=== PATIENT | male | born 1955 | race Caucasian/White ===

== ENCOUNTER 2018-12-06 19:32 | Inpatient (IN) | payer SELFPAY ==
[~2018-12-06] VITALS: Ht 188 cm; Wt 94.0 kg
[2018-12-06 19:36] VITALS: Ht 188 cm; Wt 94.0 kg
--- NOTE | 2018-12-06 19:40 | NUR ---
MD JAY AT BEDSIDE FOR MSE
--- NOTE | 2018-12-06 19:51 | NUR ---
LAB AND JESSICA VENTURA AT BEDSIDE FOR BLOOD DRAW AND EKG
--- NOTE | 2018-12-06 19:52 | NUR ---
PT BIB AMBULANCE FOR C/O GENERALIZED WEAKNESS. PT STATES HE WAS TRYING TO WALK TO THE STORE WHEN HE FELT LIKE HE JUST COULDNT ANYMORE. PT STATES THAT HE HAS BEEN "VIOLENTLY ILL ALL MORNING" PT STATES HE HAS BEEN THROWING UP WHATEVER WAS IN HIS SYSTEM. 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 PT DENIES ANY PAIN AT THIS TIME. PT IS ONLY ALERT TO NAME AND PRESIDENT. PT STATES HE DOES NOT KNOW THE DATE OR WHERE HE IS. BYSTANDER CALLED 911 FOR PT. PT IS SPEAKING IN CLEAR AND FULL SENTENCES. PT HAS UNSTEADY GAIT UPON AMBULATION FROM GURNEY TO BED. PT RESPIRATIONS ARE EQUAL AND UNLABORED. PT DENIES ANY MEDICAL PROBLEMS OR OTHER COMPLAINTS AT THIS TIME. PT REPORTS BEING HOMELESS. PT ALSO APPEARS INCONTINENT. NAD AT THIS TIME.
[2018-12-06 20:05] LABS: BASOPHIL % 0.7 % (0-2); PLATELET COUNT 141 x10^3mcL (130-400); RED CELL DISTRIBUTION WIDTH 14.5 % (11.5-14.5)
[2018-12-06 20:11] LABS: CALCIUM 9.5 mg/dL (8.5-10.1); CARBON DIOXIDE 20.4 mmol/L (21-32); CHLORIDE SERUM 88 mmol/L (98-107); CREATININE SERUM 1.7 mg/dL (0.7-1.3); GFR1 44 mL/min; GLUCOSE SERUM 156 mg/dL (74-106); POTASSIUM SERUM 3.8 mmol/L (3.5-5.1); SODIUM SERUM 130 mmol/L (136-145)
[2018-12-06 20:15] LABS: ALBUMIN 4.2 g/dL (3.4-5.0); ALKALINE PHOSPHATASE 84 U/L (46-116); ALT/SGPT 116 U/L (16-63); AST/SGOT 83 U/L (15-37); BILIRUBIN TOTAL 1.3 mg/dL (0.20-1.00); LIPASE 933 IU/L (73-393); MAGNESIUM 2.3 mg/dL (1.8-2.4); TOTAL PROTEIN, SERUM 8.2 g/dL (6.4-8.2)
--- NOTE | 2018-12-06 20:25 | NUR ---
CALLED PHARMACY FOR MULTIVITAMIN BAG. THEY STATE THEY WILL SEND IT OVER SOON IT IS READY
--- NOTE | 2018-12-06 20:50 | NUR ---
MD JAY MADE AWARE OF PT LACTIC ACID. NO NEW ORDERS AT THIS TIME.
--- NOTE | 2018-12-06 21:41 | NUR ---
ULTRASOUND AT BEDSIDE
--- NOTE | 2018-12-06 22:18 | NUR ---
PT WAS PROVIDED KENNY TO SEE IF HE CAN KEEP THAT DOWN
--- NOTE | 2018-12-06 22:39 | NUR ---
X RAY AT BEDSIDE
--- NOTE | 2018-12-06 22:51 | NUR ---
REPORT GIVENT YAN PIEDRA RN
[2018-12-06 23:27] VITALS: BP 141/90
[2018-12-06 23:31] LABS: PHOSPHOROUS 4.1 mg/dL (2.5-4.9)
[2018-12-06 23:38] LABS: FREE T4 1.09 ng/dL (0.76-1.46); FREE THYROXINE INDEX 3.3 ug/dL (1.4-4.5); T4(THYROXINE) 8.7 ug/dL (4.7-13.3)
--- NOTE | 2018-12-06 23:38 | NUR ---
RECEIVED PT FROM ER. PT ADMIT FOR PANCREATITIS, PT IS A/O X4, VERBAL RESPONSIVE, ABLE TO TELL WHAT HE NEEDS. LUNG SOUND CLEAR BILATERAL, NO COUGH, NO SOB, PT IS ON 2L/MIN O2 VIA NC. PO2 97%, PT IS ON TELE 26, ST, DENY ANY CHEST PAIN OR DISCOMFORT, BOWEL SOUND PRESENT ALL 4 QUADRANTS, NO DISTENTION, NO TENDER. PEDAL PULSE PRESENT BOTH FEET, NO EDEMA, IV AT LEFT AC, NO LEAKING, NO INFILTRATION. ALL ADLS ASSIST, ALL NEED MET, CALL LIGHT IN REACH, WILL CONTINUE TO MONITOR.
--- NOTE | 2018-12-07 | NUR ---
RECIEVED PT FROM RESOURCE NOTED. PT IS A/O X4. PT A LITTLE SLOW TO COMMAND. ON TELE 26, ST. HR 115-130. DENIES ANY CHEST PAIN OR PRESSURE. PT WAS GIVEN ATIVAN IV PER EMAR. PT STATED HE FELT A BIT RESTLESS. BANANNA BAG RUNNING FROM ED. IV INTACT AND PATENT. SKIN WARM AND INTACT. SZ PRECAUTION PLACED. BED AT LOWEST SETTING. CALL LIGHT WITHIN REACH. WILL CONTINUE TO MONTIOR.
[2018-12-07 00:25] LABS: T3 TOTAL 1.15 ng/mL
[2018-12-07 05:50] VITALS: BP 135/75
--- NOTE | 2018-12-07 06:52 | NUR ---
PT IS RESTING IN BED. PT HAD A LARGE LOOSE BM THIS AM. SZ PRECAUTION IN PLACE. PT STARTING TO HAVE TREMORS. NO ACUTE EVENT OCCURED AT NIGHT. BED IS AT LOWEST SETTING. CALL LIGHT WITHIN REACH. WILL ENDORSE TO AM NURSE.
--- NOTE | 2018-12-07 07:20 | NUR ---
AAO X4.DENIES ANY PAIN/DISCOMFORT.LUNG SOUND COARSE RHONCHI BILAT.ON ST ON THE MONITOR.IVF NS GOING AT 100 ML/HR INFUSING WELL.ON SEIZURE PRECAUTION FOR ETOH HX.ALSO ON ALCOHOL WITHDRAWAL PROTOCOL.CALL LIGHT WITHIN REACH.INSTRUCTED TO CALL FOR ANY PAIN/DISCOMFORT.WILL CONTINUE TO MONITOR PT.
[2018-12-07 07:45] LABS: AMYLASE 52 U/L (25-115); CALCIUM 7.7 mg/dL (8.5-10.1); CARBON DIOXIDE 26.2 mmol/L (21-32); CHLORIDE SERUM 100 mmol/L (98-107); CREATININE SERUM 1.2 mg/dL (0.7-1.3); GFR1 > 60 mL/min; GLUCOSE SERUM 139 mg/dL (74-106); LIPASE 404 IU/L (73-393); POTASSIUM SERUM 3.5 mmol/L (3.5-5.1); SODIUM SERUM 137 mmol/L (136-145)
[2018-12-07 07:52] LABS: BASOPHIL % 0.3 % (0-2); RED CELL DISTRIBUTION WIDTH 14.5 % (11.5-14.5)
[2018-12-07 07:55] LABS: PLATELET COUNT 89 x10^3mcL (130-400)
[2018-12-07 08:14] LABS: microscopic required? YES; urine erythrocyte 1+ (NEGATIVE)
[2018-12-07 08:27] LABS: AMPHETAMINE QUAL UR NONE DETECTED (See below)
--- NOTE | 2018-12-07 08:55 | NUR ---
GAVE PT ATIVAN 2 MG IVP ORDERED PRN PT WAS NOTED TO HAVE TREMBLING HANDS AND ALSO C/O STARTING TO FEEL ANXIOUS.WILL CONTINUE TO MONITOR PT.
[2018-12-07 09:03] VITALS: BP 135/88
--- NOTE | 2018-12-07 09:55 | NUR ---
RECHECKED PT.CLAIMS TO FEEL A LOT BETTER.
[2018-12-07 12:16] VITALS: BP 114/82
--- NOTE | 2018-12-07 16:04 | NUR ---
PAGED ABOUT PT'S GOING IN AND OUT AFIB.
--- NOTE | 2018-12-07 16:41 | NUR ---
PT IN BED, APPEARED ANXIUS AND SHAKY, ATIVAN GIVEN IVP PER PRN ORDERED, TOLERATED WELL, BED AT LOW POSITION, CALL LIGHT WITHIN REACH, CONTINUE TO MONITOR
[2018-12-07 17:52] VITALS: BP 129/75
--- NOTE | 2018-12-07 18:00 | NUR ---
INFORMED ABOUT PT ON AND OFF AFIB.
--- NOTE | 2018-12-07 18:59 | NUR ---
NO SIGNIFICANT CHANGE NOTED.WILL ENDORSE TO NEXT SHIFT.
[2018-12-07 19:30] VITALS: BP 117/71
--- NOTE | 2018-12-07 19:40 | NUR ---
SHIFT REASSESSMENT DONE.PATIENT ALERT,MAKE NEEDS KNOWN.PT HOMELESS.SZ PREC,ETOH PROTOCOL.O2 AT 2 LITERS.GEN WEAKNESS,FALL PRECAUTION.NS AT 100 CC/ HOUR.IVSITE LAC.POSITIONAL.WILL CHANGE IV SITE LATER.TELE 26 AFIB.SKIN INTACT.VOIDING.CALL LIGHT IN REACH.
--- NOTE | 2018-12-07 20:20 | NUR ---
AM REED GAVE ISAIAS AT 1930.
--- NOTE | 2018-12-07 22:09 | NUR ---
LAC IV SITE POSITIONAL AT TIMES,DECLINE NEW IV SITE.CHARGE NURSE AWARE.
--- NOTE | 2018-12-07 23:24 | NUR ---
PATIENT MESSED UP THE BED,USING URINAL BUT IT ALL OVER THE FLOOR TOO.
--- NOTE | 2018-12-08 01:45 | NUR ---
REPORT GIVEN TO DOROTHEA FOR CONTINUITY OF CARE.
--- NOTE | 2018-12-08 01:45 | NUR ---
RECEIVED REPORT FROM ARIEL HAWTHORNE. PT RESTING WITH EYES CLOSED. NO SOB ON O2 2L VIA NC. NO DISTRESS NOTED. CALL LIGHT WITHIN REACH. WILL CONTINUE TO MONITOR.
[2018-12-08 06:01] VITALS: BP 125/84
[2018-12-08 06:27] LABS: BASOPHIL % 0.3 % (0-2); RED CELL DISTRIBUTION WIDTH 14.2 % (11.5-14.5)
[2018-12-08 06:34] LABS: CALCIUM 8.4 mg/dL (8.5-10.1); CARBON DIOXIDE 24.8 mmol/L (21-32); CHLORIDE SERUM 106 mmol/L (98-107); CREATININE SERUM 0.9 mg/dL (0.7-1.3); GFR1 > 60 mL/min; GLUCOSE SERUM 97 mg/dL (74-106); LIPASE 337 IU/L (73-393); POTASSIUM SERUM 3.7 mmol/L (3.5-5.1); SODIUM SERUM 139 mmol/L (136-145)
[2018-12-08 06:36] LABS: PLATELET COUNT 83 x10^3mcL (130-400)
--- NOTE | 2018-12-08 07:16 | NUR ---
PT RESTED AT LONG INTERVALS DURING SHIFT. NO SOB ON O2 2L VIA NC. NO C/O PAIN. NO SEIZURES NOTED. NO DISTRESS NOTED. SAFETY MEASURES MAINTAINED. CALL LIGHT WITHIN REACH. ENDORSED CONTINUITY OF CARE TO DAY SHIFT RN.
--- NOTE | 2018-12-08 07:30 | NUR ---
PT ENDORSE TO ME THIS MORNING. LAYING IN BED RESTING. AA/O X4. BREATHING EVEN AND UNLABORED ON 2 LNC, NO ACUTE RESP DISTRESS OR SOB NOTED. TELE 26 ST NOTED, DENIES ANY CP OR PRESSURE. VOIDS FREELY/ URINAL AT BEDSIDE. AMB WITH GEN WEAKNESS, KNOWS TO CALL FOR ASSIST. BED ALARM ON. IV TO THE RFA INTACT AND PATENT, INFUSING AT 100ML/HR, NO REDNESS OR SWELLING NOTED. WILL CONTINE TO MONITOR.
[2018-12-08 08:49] VITALS: BP 143/69
--- NOTE | 2018-12-08 10:28 | NUR ---
TELE CALLED PT HR 140S, DR. HARRISON AWARE. PT MEDICATED PER EMAR WITH ATIVAN. WILL CONTINUE TO MONITOR. DENIES ANY CP OR PRESSURE.
--- NOTE | 2018-12-08 10:30 | NUR ---
TELE CALLED PT HR 110- 140'S DR. FRANCO MADE AWARE. PT DENIES ANY CP OR PRESSURE. WILL CONTINUE TO MONITOR.
--- NOTE | 2018-12-08 11:43 | NUR ---
PT DR. FRANCO ORDERS IVP CARDIZEM GIVEN DUE TO HR OF 130S- 140S. BP 124/80 MAP 86, RESP 20, PT DENIES ANY CP OR PRESSURE. TELE STRIP BEFORE AND AFTER IVP. WILL CONTINUE TO MONITOR.
[2018-12-08 12:15] VITALS: BP 106/73; BP 113/77
--- NOTE | 2018-12-08 12:27 | NUR ---
Initial Nutrition Assessment: 250T/B ZANDRA KEITH HR Dx: Gen weakness, pancreatitis PMHx: chronic alcoholism PSHx: Total knee replacement Labs: CA 8.4L, TG 189H, CHOL 276H, AST 83H, ALT 116H Meds: Ativan, Colace, folic acid, theragran, vitamin B-1, Zofran Diet: Regular PO Intake: (12/07) 100% Ht: 187.96cm (74") Wt: 94 kg (206#) BMI: 26.6 kg/m2 Bed scale: 207# IBW: 190# (86 kg) %IBW: 108 UBW: 235# Age: 63/M Food Allergies: NKFA Skin: intact Brain: 22 Edema: none GI: pancreatitis Last BM: 12/07/18 Trigger: N/V/D >3d, poor PO >3d Per H&P, Pt is a 63yo male with history of chronic alcoholism who was brought to the ER by AMS after a bystander called 911. Per records, patient was trying to walk to the store and, on his way back, "just couldn't anymore" and was disoriented. Patient also stated he had been feeling "violently ill" all morning; throwing up "whatever I put in my system". Imaging: Gallbladder ultrasound (12/06/18), Findings: large fatty liver RDN Visit (12/08): Pt was alert and oriented. Pt said that he ate all of his breakfast this morning and had questions about healthy eating. Diet education on pancreatitis was provided and pt verbalized understanding. Paged Dr. Baldwin to add low fat restriction to regular diet and she agreed to it. Problem with: N/V/D/C: no Problems with: Chewing/Swallowing: no Current appetite: good Recent wt change: lost 20# x 1 month %wt change: 8% (significant) Vitamin/Supplement use: MVI Special diet at home: Regular Physical activity: moderate PA Nutrition education given: Diet education on pancreatitis was provided using [facility] handout on "Pancreatitis Nutrition Therapy". Pt verbalized understanding and did not have any questions at this time. Food-drug interactions: Colace- high fiber w/1200-1500ml fluids, Ativan- limit caffeine <400-500 mg/day Education given: yes Estimated Nutritional Needs Based on ideal body weight 86 kg Energy: 3169-1862 kcal/d (25-30 kcal/kg) Protein: 86-103 g/d (1.0-1.2 g/kg)- preserve LBM Fluid: 7456-9878 ml/d (1 ml/kcal) or per doctor Nutrition Diagnosis 1. Impaired nutrient utilization related to chronic alcoholism as evidenced by fatty liver and acute alcohol induced pancreatitis. Intervention 1. Recommend changing diet order to regular (low fat). Monitor/Evaluate Goal: PO intake at least 75% of estimated needs Monitor: PO intake, Labs, GI function F/U in 7 days as low risk 12/15
--- NOTE | 2018-12-08 12:27 | NUR ---
1. Recommend changing diet order to regular (low fat).
--- NOTE | 2018-12-08 15:04 | NUR ---
Discount pharmacy card and list to low cost medical clinics given to patient by Seb.
[2018-12-08 16:18] VITALS: BP 126/76
--- NOTE | 2018-12-08 17:29 | NUR ---
PT TRYING TO GO DOWN STAIRS TO [facility], STATED NEEDS NEW GLASSES. EDUCATED THE PT ON THE IMPORTANCE/ STAYING IN HIS BED AND TRYING TO REST. PT IS VERY ANXIOUS AND UNSTEADY WHEN HE TRYING TO AMBULATE. MEDICATED PER EMAR WITH ATIVAN IVP. WILL CONTINUE TO MONITOR.
--- NOTE | 2018-12-08 18:30 | NUR ---
NO ACUTE CHANGES AT THIS TIME. NO ACUTE RESP DISTRESS OR SOB NOTED. REMAINS OFF NC, SATING AT 98% ON RA. HR SHOWING 102-104 BPM, DENEIS ANY CP OR PRESSURE. IV TO THE RFA INTACT AND PATENT/ HEPLOCKED. TOLERATED 100% OF DINNER. LAYING IN BED RESTING. PT IS CALM AND COOPERATIVE AT THIS TIME, MEDICATED PER EMAR FOR ANXIOUSNESS/ BED ALARM ON. WILL ENDORSE TO INCOMING RN.
--- NOTE | 2018-12-08 20:07 | NUR ---
WAS SITTING ON SIDE OF BED, EATING. NO SWALLOW DELAY OR COUGHING NOTED. ATE WITH GOOD APPETITE. BREATHING EVEN AND UNLABORED ON ROOM AIR. ORIENTED TO NAME, PLACE, TIME AND SITUATION. SPEECH CLEAR AND APPROPRIATE. GENERALIZED WEAKNESS. AFIB ON TELE. HR 96/MIN. DENIES HAVING CHEST PAIN. SALINE LOCK TO RIGHT FOREARM. PT THEN LAID DOWN ON BED TO SLEEP.
[2018-12-08 21:10] VITALS: BP 117/82
--- NOTE | 2018-12-08 21:48 | NUR ---
PT STATED HE WANTS TO WALK IN THE HALLWAY. ASSISTED PT TO WALK IN HALLWAY FOR SAFETY. PT ABLE TO AMBULATE TAKES SHORT QUICK STEPS, NEEDING MINIMAL ASSISTANCE FOR SAFETY. BACK IN BED. STATED FEELS BETTER AFTER BEING ABLE TO WALK AFTER 3 DAYS.
--- NOTE | 2018-12-08 21:51 | NUR ---
HEART RATE WENT UP TO 140/MIN, WHILE WALKING DOWN TO 102/MIN WHEN PT BACK IN BED
--- NOTE | 2018-12-08 22:36 | NUR ---
EYES CLOSED, BREATHING EVEN AND UNLABORED ON ROOM AIR. LYING ON HIS LEFT SIDE. HOB KEPT ELEVATED 30 DEG. CALL LIGHT WITHIN EASY REACH.
--- NOTE | 2018-12-09 00:26 | NUR ---
pt had attempted to void to urinal, but instead spilt on the floor. gown and trousers wet with urine. hygiene needs attended to, gown, linens, and hospital pants changed. pt asked for sandwich, provided, ate with good appetite. evs cleaned the floor. pt in bed watching tv.
--- NOTE | 2018-12-09 03:13 | NUR ---
CONTACT MANAGER CALLED STATED HEART RATE IN THE 140'S/MIN. PT NOT IN ROOM. WAS FOUND OUTSIDE EMPLOYEES ENTRANCE. PT STATED HE JUST WANTED TO WALK AND GOT LOST. BROUGHT BACK INTO HOSPITAL AND BACK TO BED. PLACED BED ALARM ON. HEART RATE 103/MIN.
--- NOTE | 2018-12-09 03:23 | NUR ---
EXPLAINED TO PT PURPOSE OF PLACING BED ALARM ON. PT VERBALIZED UNDERSTANDING. ALSO REINFORCED NEED TO USE CALL LIGHT TO CALL FOR ASSISTANCE. PLACED WITHIN EASY REACH.
--- NOTE | 2018-12-09 03:59 | NUR ---
EYES CLOSED, LAYING ON HIS LEFT SIDE. BREATHING EVEN AND UNLABORED ON ROOM AIR. CALL LIGHT WITHIN EASY REACH. BED ALARM ON.
--- NOTE | 2018-12-09 04:21 | NUR ---
AMBULATED TO RESTROOM, VOIDED. BACK IN BED, BED ALARM ON.
[2018-12-09 04:55] VITALS: BP 135/92
--- NOTE | 2018-12-09 06:00 | NUR ---
BATH ADMINISTERED WITH ASSISTANCE FROM EUGENIO PEDRAZA. PT SITTING UP ON BED. LINEN AND GOWN CHANGED. BREATHING EVEN AND UNLABORED. CALM AND COOPERATIVE W/ CARE. SALINE LOCK FREE FROM ERYTHEMA OR SWELLING. BED ALARM ON.
[2018-12-09 06:22] LABS: BASOPHIL % 0.4 % (0-2); RED CELL DISTRIBUTION WIDTH 14.2 % (11.5-14.5)
[2018-12-09 06:38] LABS: CALCIUM 8.6 mg/dL (8.5-10.1); CARBON DIOXIDE 23.9 mmol/L (21-32); CHLORIDE SERUM 106 mmol/L (98-107); CREATININE SERUM 0.9 mg/dL (0.7-1.3); GFR1 > 60 mL/min; GLUCOSE SERUM 102 mg/dL (74-106); POTASSIUM SERUM 3.5 mmol/L (3.5-5.1); SODIUM SERUM 140 mmol/L (136-145)
--- NOTE | 2018-12-09 06:45 | NUR ---
NOTED SINUS RHYTHM ON TELE, HR 80/MIN.
[2018-12-09 06:50] LABS: PLATELET COUNT 101 x10^3mcL (130-400)
--- NOTE | 2018-12-09 07:10 | NUR ---
AWAKE AND ALERT, BREATHING UNLABORED ON ROOM AIR. CALL LIGHT WITHIN EASY REACH. WATCHING TV. BED ALARM ON. ENDORSED TO NURSE NICOLE
--- NOTE | 2018-12-09 07:30 | NUR ---
PT ENDORSE TO ME THIS MORNING. SETTING UP IN BED. AA/O X4 /BREATHING EVEN AND UNLABORED ON RN. NO ACUTE RESP DISTRESS OR SOB NOTED. SEZ PREC IN PLACE. TELE 26 SR 92 NOTED ON MONITOR. VOIDS FREELY/ URINAL, AMB / UNSTEADY/ NEEDS ASSISTANCE TO AMB/ CALL LIGHT IN REACH. BED ALARM ON/ BY NURSES STATION. IV TO THE SUGAR, INTACT AND PATENT/ HEPLOCKED. WILL CONTINUE PLAN OF CARE .
[2018-12-09 08:25] VITALS: BP 143/89
--- NOTE | 2018-12-09 11:17 | NUR ---
PT IS VERY ANXIOUS AND AGITATED, MEDICATED PER EMAR.
--- NOTE | 2018-12-09 12:00 | NUR ---
PHYSICAL THERAPY AT BEDSIDE WORKING WITH PATIENT.
[2018-12-09 13:24] VITALS: BP 128/83
--- NOTE | 2018-12-09 14:27 | NUR ---
PT IS LAYING IN BED STATING HE NOW CANT GET DISCHARGE DUE TO FEELING WEAK AND HIS ANXIOUS AND AGITATED/ MEDICATED PER EMAR WITH ATIVAN PO. WILL CONTINUE TO MONITOR.
[2018-12-09] MEDS ORDERED: LIB25 PO (14:53)
[2018-12-09] MEDS ORDERED: VIS50 PO (14:54)
[2018-12-09] MEDS ORDERED: LOPRESSOR50 M1 PO (15:06)
--- NOTE | 2018-12-09 15:30 | NUR ---
EXPLAINED DISCHARGE INSTRUCTIONS, NEW AND CONTINUED MEDS AND FOLLOW UP APPT, PT AGREED AND SIGNED ALL DOCUEMNTS. REMOVED IV TO THE RFA, CATHETER TIP INTACT. REMOVED TELE 26 AND RETURNED.FILM PROCESSOR MILTON AT BEDSIDE WITH PT.
--- NOTE | 2018-12-09 16:18 | NUR ---
DELICATESSEN MANAGER MILTON AT BEDSIDE AGAIN, PROVIDED CAB VOUCHER, CLOTHING, SNACK AND [facility] PLACEMENT ([facility]) INFO. PT BREATHING EVEN AND UNLABORED ON RA. NO ACUTE RESP DISTRESS OR SOB NOTED. DENIES ANY CP OR PRESSURE. PT DISCHARGE.
== END 2018-12-09 16:18 | disposition home or self-care (01) | DRG 871 ==
LOC: ED 19:32 → MU 22:25 → DU 23:05
PROVIDERS: Emergency Medicine; ADMIT Family Medicine
DX: A41.9 Sepsis, unspecified organism (principal); G93.41 Metabolic encephalopathy; K85.20 Alcohol induced acute pancreatitis without necrosis or infection; N17.0 Acute kidney failure with tubular necrosis; E87.1 Hypo-osmolality and hyponatremia; E87.2 Acidosis; F10.120 Alcohol abuse with intoxication, uncomplicated; Z60.2 Problems related to living alone; R74.0 Nonspecific elevation of levels of transaminase and lactic acid dehydrogenase [LDH]; I48.91 Unspecified atrial fibrillation; D69.6 Thrombocytopenia, unspecified; E78.5 Hyperlipidemia, unspecified; Z68.27 Body mass index [BMI] 27.0-27.9, adult; Z23 Encounter for immunization
CPT/HCPCS: 84439; 90732; G0480; J2060; J2405; J2543; J3490; J7030; Q0092